=== PATIENT | female | born 1965 ===

== ENCOUNTER 2023-05-26 08:56 | Outpatient (AMB) | payer OTHER, SELFPAY ==
--- NOTE | 2023-05-26 08:54 | A.OFFVIS_ITS ---
Intake Vital Signs 05/26/23 08:56 Height 5 ft 3 in Weight 231 lb 0.711 oz BMI 40.9 BP 145/88 H Blood Pressure Location Lt brachial Position Sitting Pulse 86 Pulse Source Pulse Oximeter Intake Visit Reasons: Abdominal pain Intake Note: Pt presents to the office today for abdominal pain. Pt states this has been ongoing for years and saw a GI specialist about 10 years ago and was diagnosed with IBS. Allergies acetaminophen [From Percocet] Allergy (Severe, Verified 05/26/23 08:56) Unknown aspirin Allergy (Severe, Verified 05/26/23 08:56) Unknown ibuprofen Allergy (Severe, Verified 05/26/23 08:56) Unknown lactose Allergy (Severe, Verified 05/26/23 08:56) Rash latex Allergy (Severe, Verified 05/26/23 08:56) Unknown oxycodone [From Percocet] Allergy (Severe, Verified 05/26/23 08:56) Unknown tramadol Allergy (Severe, Verified 05/26/23 08:56) Unknown HPI Abdominal pain HPI Details 57-year-old female with past medical his tory of fibromyalgia, obesity, fatty liver, chronic GERD, IBS is here today for initial consultation. Patient was seen in the past by GI specialty in [facility]. Last upper endoscopy and colonoscopy was done in 2020. The procedure was done in October of 2020. Patient was found to have a H pylori associated gastritis with H pylori bacteria present, patient reports that she was not treated, GI specialist moved away. Colonoscopy showed hyperplastic polyps. Patient reports that she was diagnosed with H pylori bacteria in the past before her last upper endoscopy and was treated. Patient reports postprandial abdominal pain. Unable to eat certain food. Patient is doing elimination diet herself. Has to avoid lactose, unable to eat corn or any corn products. Patient's primary care provider send her for CT scan and MRI. MRI showed hepatic steatosis without any suspicion for liver lesion. No intra or extrahepatic biliary duct dilation. Normal gallbladder, normal pancreas. Patient had MRI in December of 2022, possible gastric wall thickening despite under distension, no small bowel obstruction. In March patient had CT scan of abdomen and pelvis for right upper quadrant discomfort. Questionable wall thickening and intraluminal narrowing of the hepatic flexure. [facility] Medical History (Updated 05/26/23 @ 12:03 by Jojo Obando, [facility]-) Non-alcoholic fatty liver disease Morbid (severe) obesity due to excess calories Irritable bowel syndrome Chronic GERD Fibromyalgia Surgical History S/P section Family History Father Hypertension Mother Cancer of thyroid Social History (Updated 05/26/23 @ 08:57 by Karen Singleton MA) Alcohol intake: never Patient Tobacco Use Status: Never used Tobacco Current occupational status: employed Current occupation: Teacher Review of Systems Const Denies weight gain and Denies weight loss ENT Reports no additional complaints, Denies dysphagia and Denies odynophagia Card Reports no additional complaints Resp Reports no additional complaints GI Reports abdominal pain, Denies belching, Denies melena, Reports bloating, Denies change in bowel habits, Denies dysphagia, Denies excessive flatus, Denies dyspepsia, Denies heartburn, Denies diarrhea, Denies loose stools, Denies nausea, Denies odynophagia and Denies vomiting Reports no additional complaints Musc Reports no additional complaints Neuro Reports no additional complaints Psych Reports no additional complaints Endo Reports no additional complaints Physical Exam Vital Signs: Last Vital Signs Pulse 86 05/26/23 08:56 BP 145/88 H 05/26/23 08:56 BMI result Body Mass Index 40.9 Const General: healthy appearing, no acute distress and well developed Nutritional Appearance: obese Orientation/consciousness: patient oriented x3 HEENT Head: Yes normal to inspection, Yes normocephalic and Yes atraumatic Face and sinus: Yes normal facial exam Mouth: Normal oral and palatal mucosa present Throat: Yes posterior oropharynx normal, Yes tonsils normal and Yes uvula midline Eyes General: appearance normal, both eyes and all related structures Neck Neck: Yes normal visual inspection, Yes full ROM and Yes trachea midline Thyroid: Thyroid normal Resp Effort & Inspection: normal respiratory effort, able to speak in complete sentences, no tracheal deviation and symmetric chest movement Auscultation: clear to auscultation bilaterally Cardio Rate: regular rate GI Inspection: Yes normal to inspection, No distended and Yes obesity Palpation (GI): Soft to palpation, not firm, nontender and No hepatosplenomegaly present Auscultation: normal bowel sounds General: Yes no CVA tenderness Back/Spine/Pelvis Back: no CVA tenderness Skin General skin exam: elasticity normal, turgor normal and dry skin Neuro General: patient oriented x3 Psych Appearance: grossly normal Mental Status: mental status grossly normal Affect: normal affect Assessment & Plan Assessment & Plan (1) IBS (irritable bowel syndrome): Code(s): K58.9 - Irritable bowel syndrome without diarrhea Qualifiers: Irritable bowel syndrome type: with both diarrhea and constipation Qualified Code(s): K58.2 - Mixed irritable bowel syndrome (2) Postprandial abdominal bloating: Code(s): R14.0 - Abdominal distension (gaseous) (3) Postprandial abdominal pain in right upper quadrant: Code(s): R10.11 - Right upper quadrant pain Plan Untreated H pylori most likely. Patient reports to have right upper and epigastric pain postprandially. Will do H pylori testing in treat empirically if positive. May send patient for upper endoscopy to evaluate and culture for appropriate treatment. Will change her therapy to Nexium daily. Discussed with patient avoiding dietary triggers and late night snacking. Will check transglutaminase to rule out celiac. Postprandial right upper quadrant discomfort and tenderness. Will send her for HIDA scan 1st. Will rule out biliary dyskinesia. Hepatic flexure thickening seen patient might need to go for colonoscopy. Patient did had a colonoscopy in October of 2020 no polyps or mass seen. Will check liver profile and lipase. Will rule out pancreatic insufficiency. Patient does report frequent postprandial abdominal bloating and loose stools. Will check vitamin B12, folate, vitamin-D levels. Will start having patient take Citrucel to help her bulk stools. Patient will take Senokot in the evening to help her evacuate her stools better. Low FODMAP diet discussed with patient. List of food record commended this with his list of food to avoid given to patient. Patient will return in the office in 2 months, sooner on as needed basis. Patient is agreeable to plan of care and verbalizes understanding of instructions. She was given the opportunity to ask questions and all questions answered. Thank you for allowing me to participate in her care Orders: Orders H pylori Ag Stool Today K21.9 - Gastro-esophageal reflux disease without esophagitis Transglutaminase Ab IgG Today R10.9 - Unspecified abdominal pain TSH reflex Free T4 Today K59.00 - Constipation, unspecified Vitamin D 25-OH (D2 and D3) Today E55.9 - Vitamin D deficiency, unspecified Liver Panel Today R10.9 - Unspecified abdominal pain NM hepatobiliary w pharm Today R10.11 - Right upper quadrant pain Pancreatic Elastase-1 Today R10.9 - Unspecified abdominal pain Transglutaminase IgA Today R10.9 - Unspecified abdominal pain Lipase Today R10.9 - Unspecified abdominal pain Vitamin B12 and Folate Today R19.7 - Diarrhea, unspecified Medications: New methylcellulose (laxative) (Citrucel) 500 mg PO DAILY 30 tabs 2RF K59.00 - Constipation, unspecified sennosides (Natural Senna Laxative) 17.2 mg (2 x 8.6 mg) PO BEDTIME 60 tabs 3RF constipation K59.00 - Constipation, unspecified esomeprazole magnesium (Nexium) 40 mg PO DAILY 30 caps 5RF K21.9 - Gastro- esophageal reflux disease without esophagitis Coding Level of Care Code New Pt Level 4 (47771) Diagnoses Irritable bowel syndrome with both constipation and diarrhea K58.2 Irritable bowel syndrome type: with both diarrhea and constipation Postprandial abdominal bloating R14.0 Postprandial abdominal pain in right upper quadrant R10.11 Time Spent (min) 45 Comment 30 minutes spent with patient and additional 15 minutes spent reviewing her records
[2023-05-26 08:56] VITALS: BP 145/88; PULSE 86; BMI 40.9
== END 2023-05-26 09:30 | disposition home or self-care (01) ==
LOC: HO.HGI 08:56
PROVIDERS: PCP Hospitalist; Visit Provider Nurse Practitioner Family
DX: K58.2 Mixed irritable bowel syndrome (principal); R14.0 Abdominal distension (gaseous); R10.11 Right upper quadrant pain
CPT/HCPCS: 99204

== ENCOUNTER 2023-05-26 08:56 | Outpatient (REF) | payer OTHER, SELFPAY ==
[2023-05-26 11:11] LABS: Alanine Aminotransferase 28 U/L (0-31); Albumin Level 4.3 g/dL (3.5-5.0); Alkaline Phosphatase 128 U/L (39-117); Aspartate Amino Transferase 26 U/L (5-31); Bilirubin Direct 0.2 mg/dL (0.0-0.5); Bilirubin Total 0.5 mg/dL (0.0-1.0); Lipase 22 U/L (8-78); Total Protein 7.7 g/dL (6.5-8.0)
[2023-05-26 11:28] LABS: TSH reflex Free T4 1.42 uIU/mL (0.32-4.0)
[2023-05-26 11:34] LABS: Folate 13.1 ng/mL (> or = 4.0); Vitamin B12 878 pg/mL (200-900)
[2023-05-28 13:57] LABS: Transglutaminase Ab IgG <1.0 U/mL; Transglutaminase IgA <1.0 U/mL
[2023-05-31 15:08] LABS: Vitamin D 25-OH, D2 11 ng/mL; Vitamin D 25-OH, D3 11 ng/mL; Vitamin D 25-OH, Total 22 ng/mL (30-100)
== END 2023-05-26 08:57 | disposition home or self-care (01) ==
LOC: HO.LAB 08:56
PROVIDERS: PCP Hospitalist; Visit Provider Nurse Practitioner Family
DX: R10.11 Right upper quadrant pain (principal); K58.2 Mixed irritable bowel syndrome; R14.0 Abdominal distension (gaseous); R19.7 Diarrhea, unspecified; K59.00 Constipation, unspecified; E55.9 Vitamin D deficiency, unspecified
CPT/HCPCS: 36415; 80076; 82306; 82607; 82746; 83690; 84443; 86364

== ENCOUNTER 2023-06-23 18:32 | Outpatient (REF) | payer OTHER, SELFPAY ==
[2023-06-30 18:53] LABS: Pancreatic Elastase-1 >500 mcg/g
== END 2023-06-23 18:33 | disposition home or self-care (01) ==
LOC: HO.LNP 18:32
PROVIDERS: Visit Provider Nurse Practitioner Family
DX: R10.9 Unspecified abdominal pain (principal); K21.9 Gastro-esophageal reflux disease without esophagitis
CPT/HCPCS: 82656; 87338

== ENCOUNTER → 2023-06-25 08:17 | Outpatient (REF) | payer OTHER, SELFPAY ==
--- NOTE | ~2023-06-25 | NM_ITS ---
EXAMINATION: BILIARY TRACT IMAGING STUDY WITH CCK CLINICAL INFORMATION: Right upper quadrant pain.. COMPARISON: No previous imaging studies are available for comparison.. TECHNIQUE: Serial gamma scintillation camera images were obtained over the abdomen for a total observation period of 90 minutes following the intravenous administration of 5 mCi Tc-99m Mebrofenin. FINDINGS: There is good concentration of activity in the liver by 5 minutes post injection. Biliary activity is visualized by 10 minutes. The gallbladder is well visualized by 25 minutes. Small bowel is well visualized by 15 minutes. At 60 minutes post radiopharmaceutical injection, a 30-minute infusion of 2.0 micrograms Sincalide was then begun and an additional 30 minutes of images were obtained. There is no significant gallbladder emptying at any time during the sincalide infusion. At the end of the study a full gallbladder is present but there is almost complete clearance of activity from the liver and visualization of diffuse small bowel activity. The calculated gallbladder ejection fraction is 4% (normal gallbladder ejection fraction is greater than 35%). NM/NM hepatobiliary w pharm IMPRESSION: 1. Visualization of the gallbladder is evidence of a patent cystic duct and strong evidence against the diagnosis of acute cholecystitis. The common bile duct is patent. Liver function appears normal. 2. Poor gallbladder emptying and a low gallbladder ejection fraction are evidence of impaired gallbladder contractility and most likely due to chronic cholecystitis.
== END ==
LOC: HO.NUCMED 08:17
PROVIDERS: PCP Hospitalist; Visit Provider Nurse Practitioner Family
DX: R10.11 Right upper quadrant pain (principal)
CPT/HCPCS: 78227; A9537; J2805

== ENCOUNTER 2023-07-13 13:35 | Outpatient (AMB) | payer OTHER, SELFPAY ==
--- NOTE | 2023-07-13 13:36 | MHC.OFFVIS ---
Intake Vital Signs 07/13/23 13:43 Height 5 ft 3 in Weight 228 lb BMI 40.4 BP 121/75 Blood Pressure Location Rt brachial Position Sitting Pulse 99 Intake Visit Reasons: Calculated gallbladder Intake Note: Patient referred by Cristobal Obando PA-C for calculated gallbladder. HIDA scan on 06-25-23. Patient c/o: discomfort, pain radiates from mid back to lower back. Denies nausea. 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 Accompanied by: Self / Same As Patient Allergies acetaminophen [From Percocet] Allergy (Severe, Verified 07/13/23 13:41) Unknown aspirin Allergy (Severe, Verified 07/13/23 13:41) Unknown ibuprofen Allergy (Severe, Verified 07/13/23 13:41) Unknown lactose Allergy (Severe, Verified 07/13/23 13:41) Rash latex Allergy (Severe, Verified 07/13/23 13:41) Unknown oxycodone [From Percocet] Allergy (Severe, Verified 07/13/23 13:41) Unknown tramadol Allergy (Severe, Verified 07/13/23 13:41) Unknown HPI HPI Comments History of Present Illness Details Patient presents because of a longstanding history of biliary symptoms with workup demonstrating biliary dyskinesia. Patient has had a variety of studies scopes and scans. Her symptoms consist of postprandial right upper quadrant pain radiating around to her back. As noted above this has been going for many years time. Patient has never been yellow or jaundiced. She denies any other GI issues or complaints. [facility] Medical History (Updated 06/25/23 @ 17:22 by Jojo Obando, [facility]-) Non-alcoholic fatty liver disease Morbid (severe) obesity due to excess calories Irritable bowel syndrome Chronic GERD Fibromyalgia Surgical History (Updated 07/13/23 @ 14:11 by Del Finney MD) Biliary dyskinesia S/P section Family History Father Hypertension Mother Cancer of thyroid Social History (Updated 05/26/23 @ 08:57 by Karen Singleton MA) Alcohol intake: never Patient Tobacco Use Status: Never used Tobacco Current occupational status: employed Current occupation: Teacher Physical Exam Vital Signs: Last Vital Signs Pulse 99 07/13/23 13:43 BP 121/75 07/13/23 13:43 BMI result Body Mass Index 40.4 Chest Other: Chest sounds bilaterally, HS 1 and 2. GI Other: Abdomen very corpulent, soft, benign. No scars. No obvious hernias. Assessment & Plan Assessment & Plan (1) Biliary dyskinesia: Code(s): K82.8 - Other specified diseases of gallbladder Plan Risks, benefits, alternatives laparoscopic possible open cholecystectomy reviewed the patient and included but not limited to bleeding, infection, recurrence of symptoms,, numbness, pain, scarring, bowel or bile duct injury or leak and the patient wishes to proceed. All questions answered. Arrangements were made for this. Coding Level of Care Code New Pt Level 5 (07447) Diagnoses Biliary dyskinesia K82.8
[2023-07-13 13:43] VITALS: BP 121/75; PULSE 99; BMI 40.4
== END 2023-07-13 14:03 | disposition home or self-care (01) ==
PROVIDERS: PCP Hospitalist; Referring Provider Nurse Practitioner Family; Visit Provider Surgery
DX: K82.8 Other specified diseases of gallbladder (principal)
CPT/HCPCS: 99204

== ENCOUNTER → 2023-07-13 13:35 | Outpatient (BNVA) | payer OTHER, SELFPAY | PROVIDERS: PCP Hospitalist; Referring Provider Nurse Practitioner Family; Visit Provider Surgery ==

== ENCOUNTER → 2023-07-27 09:33 | Outpatient (BNVA) | payer OTHER, SELFPAY | PROVIDERS: PCP Hospitalist; Visit Provider Nurse Practitioner Family ==

== ENCOUNTER 2023-07-27 09:38 | Outpatient (AMB) | payer OTHER, SELFPAY ==
[2023-07-27 09:34] VITALS: BP 127/70; PULSE 80; BMI 39.9
--- NOTE | 2023-07-27 09:34 | MHC.OFFVIS ---
Intake Vital Signs 07/27/23 09:34 Height 5 ft 3 in Weight 225 lb BMI 39.9 BP 127/70 Blood Pressure Location Rt brachial Position Sitting Pulse 80 Pulse Source Monitor Intake Visit Reasons: 2 MONTH FOLLOW UP Intake Note: Patient states shes been feeling the same as the last office visit. Patient is still having nausea, stomach aches, swelling right side of stomach/back area with diarrhea on and off. Manager Secondary Required: No Accompanied by: Self / Same As Patient Allergies acetaminophen [From Percocet] Allergy (Severe, Verified 07/27/23 09:37) Unknown aspirin Allergy (Severe, Verified 07/27/23 09:37) Unknown ibuprofen Allergy (Severe, Verified 07/27/23 09:37) Unknown lactose Allergy (Severe, Verified 07/27/23 09:37) Rash latex Allergy (Severe, Verified 07/27/23 09:37) Unknown oxycodone [From Percocet] Allergy (Severe, Verified 07/27/23 09:37) Unknown tramadol Allergy (Severe, Verified 07/27/23 09:37) Unknown HPI 2 MONTH FOLLOW UP HPI Details LAST VISIT IBS (irritable bowel syndrome) Postprandial abdominal bloating Postprandial abdominal pain in right upper quadrant Plan Untreated H pylori most likely. Patient reports to have right upper and epigastric pain postprandially. Will do H pylori testing in treat empirically if positive. May send patient for upper endoscopy to evaluate and culture for appropriate treatment. Will change her therapy to Nexium daily. Discussed with patient avoiding dietary triggers and late night snacking. Will check transglutaminase to rule out celiac. Postprandial right upper quadrant discomfort and tenderness. Will send her for HIDA scan 1st. Will rule out biliary dyskinesia. Hepatic flexure thickening seen patient might need to go for colonoscopy. Patient did had a colonoscopy in October of 2020 no polyps or mass seen. Will check liver profile and lipase. Will rule out pancreatic insufficiency. Patient does report frequent postprandial abdominal bloating and loose stools. Will check vitamin B12, folate, vitamin-D levels. Will start having patient take Citrucel to help her bulk stools. Patient will take Senokot in the evening to help her evacuate her stools better. Low FODMAP diet discussed with patient. List of food record commended this with his list of food to avoid given to patient. Patient will return in the office in 2 months, sooner on as needed basis. Patient is agreeable to plan of care and verbalizes understanding of instructions. She was given the opportunity to ask questions and all questions answered. ? Thank you for allowing me to participate in her care Orders Orders H pylori Ag Stool Today K21.9 Transglutaminase Ab IgG Today R10.9 TSH reflex Free T4 Today K59.00 Vitamin D 25-OH (D2 and D3) Today E55.9 Liver Panel Today R10.9 NM hepatobiliary w pharm Today R10.11 Pancreatic Elastase-1 Today R10.9 Transglutaminase IgA Today R10.9 Lipase Today R10.9 Vitamin B12 and Folate Today R19.7 Medications New methylcellulose (laxative) (Citrucel) 500 mg PO DAILY 30 tabs 2RF K59.00 sennosides (Natural Senna Laxative) 17.2 mg (2 x 8.6 mg) PO BEDTIME 60 tabs 3RF constipation K59.00 esomeprazole magnesium (Nexium) 40 mg PO DAILY 30 caps 5RF K21.9 TODAY'S VISIT: Patient is here today for follow-up and to discuss lab and HIDA scan results. No H pylori found. However patient does have dyskinetic gallbladder. Patient was referred to General surgery and has scheduled cholecystectomy next week. Patient continues to have occasional loose stool and then constipation, depending on what she eats. Reports that her dyspepsia is much better now that she is on pantoprazole. Patient tried Nexium, however felt like she had a strange reaction with body aches when she started taking it. Patient denies any dysphagia or odynophagia. Patient denies any melena, hematochezia, unintentional weight loss or ribbon like stools. [facility] Medical History (Updated 06/25/23 @ 17:22 by Jojo Obando, [facility]-) Non-alcoholic fatty liver disease Morbid (severe) obesity due to excess calories Irritable bowel syndrome Chronic GERD Fibromyalgia Surgical History (Updated 02/06/24 @ 14:11 by Del Finney MD) Biliary dyskinesia S/P section Family History Father Hypertension Mother Cancer of thyroid Social History (Updated 05/26/23 @ 08:57 by Karen Singleton MA) Alcohol intake: never Patient Tobacco Use Status: Never used Tobacco Current occupational status: employed Current occupation: Teacher Review of Systems Const Denies weight gain and Denies weight loss ENT Reports no additional complaints, Denies dysphagia and Denies odynophagia Card Reports no additional complaints Resp Reports no additional complaints GI Reports abdominal pain (RUQ), Denies belching, Denies melena, Reports bloating, Denies change in bowel habits, Reports constipation, Denies dysphagia, Denies excessive flatus, Denies dyspepsia, Denies heartburn, Denies diarrhea, Reports loose stools, Denies nausea, Denies odynophagia and Denies vomiting Reports no additional complaints Musc Reports no additional complaints Neuro Reports no additional complaints Psych Reports no additional complaints Endo Reports no additional complaints Physical Exam Const General: healthy appearing, no acute distress and well developed Nutritional Appearance: obese Orientation/consciousness: patient oriented x3 Resp Effort & Inspection: normal respiratory effort, able to speak in complete sentences, no tracheal deviation and symmetric chest movement Auscultation: clear to auscultation bilaterally Cardio Rate: regular rate GI Inspection: Yes normal to inspection, No distended and Yes obesity Palpation (GI): Soft to palpation, not firm, nontender and No hepatosplenomegaly present Auscultation: normal bowel sounds General: Yes no CVA tenderness Back/Spine/Pelvis Back: no CVA tenderness Skin General skin exam: elasticity normal, turgor normal and dry skin Neuro General: patient oriented x3 Psych Appearance: grossly normal Mental Status: mental status grossly normal Results Reviewed Results Reviewed: Laboratory Tests 05/26/23 05/26/23 06/23/23 09:58 09:58 11:20 Vitamin B12 878 25-OH Vitamin D Total 22 L 25-Hydroxy Vitamin D2 11 25-Hydroxy Vitamin D3 11 Folate 13.1 TSH 1.42 Stool Pancreat Elastase >500 Tiss Transglutamin IgG <1.0 Tiss Transglutamin IgA <1.0 HIDA SCAN FINDINGS: There is good concentration of activity in the liver by 5 minutes post injection. Biliary activity is visualized by 10 minutes. The gallbladder is well visualized by 25 minutes. Small bowel is well visualized by 15 minutes. At 60 minutes post radiopharmaceutical injection, a 30-minute infusion of 2.0 micrograms Sincalide was then begun and an additional 30 minutes of images were obtained. There is no significant gallbladder emptying at any time during the sincalide infusion. At the end of the study a full gallbladder is present but there is almost complete clearance of activity from the liver and visualization of diffuse small bowel activity. The calculated gallbladder ejection fraction is 4% (normal gallbladder ejection fraction is greater than 35%). NM/NM hepatobiliary w pharm IMPRESSION: 1. Visualization of the gallbladder is evidence of a patent cystic duct and strong evidence against the diagnosis of acute cholecystitis. The common bile duct is patent. Liver function appears normal. 2. Poor gallbladder emptying and a low gallbladder ejection fraction are evidence of impaired gallbladder contractility and most likely due to chronic cholecystitis. Assessment & Plan Assessment & Plan (1) Biliary dyskinesia: Code(s): K82.8 - Other specified diseases of gallbladder (2) IBS (irritable bowel syndrome): Code(s): K58.9 - Irritable bowel syndrome without diarrhea Qualifiers: Irritable bowel syndrome type: with both diarrhea and constipation Qualified Code(s): K58.2 - Mixed irritable bowel syndrome (3) Postprandial abdominal bloating: Code(s): R14.0 - Abdominal distension (gaseous) (4) Postprandial abdominal pain in right upper quadrant: Code(s): R10.11 - Right upper quadrant pain Plan Continue pantoprazole daily. May use Senokot on as needed basis. Discussed with patient low FODMAP diet. List of food recommended as well as list of food to avoid given to patient. Discussed with patient that she might need to change her diet her surgery. I will see her in 3 months, sooner on as needed basis. Patient is agreeable to this plan and verbalizes understanding of instructions. She was given the opportunity to ask questions and all questions answered. Thank you for allowing me to participate in her care Coding Level of Care Code Est Pt Level 4 (72569) Diagnoses Biliary dyskinesia K82.8 Irritable bowel syndrome with both constipation and diarrhea K58.2 Irritable bowel syndrome type: with both diarrhea and constipation Postprandial abdominal bloating R14.0 Postprandial abdominal pain in right upper quadrant R10.11 Time Spent (min) 35 Comment 20 minutes spent with patient and additional 15 minutes spent reviewing her records
== END 2023-07-27 10:02 | disposition home or self-care (01) ==
PROVIDERS: PCP Hospitalist; Visit Provider Nurse Practitioner Family
DX: K82.8 Other specified diseases of gallbladder (principal); K58.2 Mixed irritable bowel syndrome; R14.0 Abdominal distension (gaseous); R10.11 Right upper quadrant pain
CPT/HCPCS: 99214

== ENCOUNTER 2023-08-05 08:24 | Day surgery (SDC) | payer OTHER, SELFPAY ==
[2023-08-03 09:47] VITALS: BMI 40.4
--- NOTE | 2023-08-04 10:08 | HO.ANESPROP2 ---
HPI - Anesthesia Eval Consult details Narrative: 58yo F for Cholecystectomy Laparoscopic, possible open PMFSH Active Problems Active Problems: All Active Problems (Updated 08/03/23 @ 09:45 by Angelina Mills RN) Biliary dyskinesia (Acute) Past Medical History Medical History (Updated 08/03/23 @ 09:43 by Angelina Mills RN) Biliary dyskinesia Non-alcoholic fatty liver disease Morbid (severe) obesity due to excess calories Irritable bowel syndrome Chronic GERD Fibromyalgia Family History Family History Father Hypertension Mother Cancer of thyroid Surgical History Surgical History (Updated 08/03/23 @ 09:45 by Angelina Mills RN) H/O colonoscopy History of esophagogastroduodenoscopy (EGD) S/P section Social History Social History (Updated 05/26/23 @ 08:57 by Karen Singleton MA) Alcohol intake: never Patient Tobacco Use Status: Never used Tobacco Current occupational status: employed Current occupation: Teacher Meds Allergies Allergy/AdvReac Type Severity Reaction Status Date / Time lactose Allergy Intermediate Rash Verified 08/03/23 09:40 aspirin Allergy Unknown Unknown Verified 08/03/23 09:40 ibuprofen Allergy Unknown Unknown Verified 08/03/23 09:40 latex Allergy Unknown Unknown Verified 08/03/23 09:40 oxycodone [From Percocet] Allergy Unknown Unknown Verified 08/03/23 09:40 tramadol Allergy Unknown Unknown Verified 08/03/23 09:40 Home Medications Medication Instructions Recorded Confirmed Last Taken Type ascorbic acid (vitamin C) 1,000 mg 1,000 mg PO DAILY 05/20/23 08/03/23 Unknown History tablet fluticasone propionate 50 1 spray intranasal DAILY 05/20/23 08/03/23 Unknown History mcg/actuation nasal spray,suspension furosemide 20 mg tablet 20 mg PO DAILY 05/20/23 08/03/23 Unknown History losartan 25 mg tablet 25 mg PO DAILY 05/20/23 08/03/23 Unknown History celecoxib 100 mg capsule (Celebrex) 100 mg PO BID PRN Pain 07/27/23 08/03/23 Unknown History cyclobenzaprine 10 mg tablet 10 mg PO TID PRN 07/27/23 Unknown History gabapentin 100 mg capsule 100 mg PO BID PRN Pain 07/27/23 08/03/23 Unknown History methylcellulose (laxative) 500 mg 500 mg PO DAILY PRN Constipation 07/27/23 08/03/23 Unknown History tablet (Citrucel) Exam Height,Weight and Vital Signs: Height 5 ft 3 in Weight 103.419 kg Assessment and Plan Assessment Anesthesia Assessment: Chart Reviewed
--- NOTE | 2023-08-04 13:22 | MHC.SHP ---
Pre-Procedural Eval Section A - 24 Hr Update-Section A only Date of Service: 08/04/23 The patient is an INPATIENT: No Changes since office visit: No Cold of Flu in the past 2 weeks, No New Medical Problems, No Changes in Medication and No Patient answered all questions The patient has been examined within 24 hours of the surgical procedure. The History & Physical has been completed within 30 days and I have reviewed it.: Yes Section B - Complete if H&P > 30 days Chief Complaint: Other specified diseases of gallbladder Allergies: Allergies Allergy/AdvReac Type Severity Reaction Status Date / Time lactose Allergy Intermediate Rash Verified 08/03/23 09:40 aspirin Allergy Unknown Unknown Verified 08/03/23 09:40 ibuprofen Allergy Unknown Unknown Verified 08/03/23 09:40 latex Allergy Unknown Unknown Verified 08/03/23 09:40 oxycodone [From Percocet] Allergy Unknown Unknown Verified 08/03/23 09:40 tramadol Allergy Unknown Unknown Verified 08/03/23 09:40 Plan I have reviewed the history and physical and performed a pertinent physical examination on my patient. No changes have occurred unless specified. Time Spent With Patient Time: Total time managing care of this patient today ____ minutes.
[2023-08-05] VITALS (14 sets, daily range): BP systolic 112–138; BP diastolic 65–79; PULSE 46–72; RESP 14–28; TEMP 36.4–36.8; O2SAT 88–98; BMI 39.5
[2023-08-05 14:12] LABS: Hematocrit 40.3 % (37.0-47.0); Mean Corpuscular HGB Conc 34.7 g/dl (31.0-35.0); Mean Corpuscular Hemoglobin 28.9 pg (27.0-33.0); Mean Corpuscular Volume 83.1 fL (80.0-98.0); Platelet Count 195 X10*3/uL (160-400); Red Blood Count 4.85 X10*6/uL (4.20-5.50); Red Cell Distribution Width 12.7 % (11.0-16.0); White Blood Count 4.6 X10*3/uL (4.8-10.8)
[2023-08-05 14:26] LABS: Alanine Aminotransferase 30 U/L (0-31); Albumin Level 4.2 g/dL (3.5-5.0); Alkaline Phosphatase 137 U/L (39-117); Anion Gap 11 (12-20); Aspartate Amino Transferase 25 U/L (5-31); Bilirubin Total 0.6 mg/dL (0.0-1.0); Blood Urea Nitrogen 15 mg/dL (9-16); Calcium 9.3 mg/dL (8.4-10.2); Carbon Dioxide 26 mmol/L (22-29); Chloride 108 mmol/L (96-108); Creatinine Clr Calc Pharmacy 98.9; Estimated Glomerular Filt Rate > 60; Glucose Fasting 85 mg/dL (60-99); Potassium 3.9 mmol/L (3.3-5.1); Sodium 141 mmol/L (135-145); Total Protein 7.6 g/dL (6.5-8.0)
--- NOTE | 2023-08-05 15:00 | P.CONAN_ITS ---
[facility] Active Problems Active Problems: All Active Problems (Updated 08/05/23 @ 14:34 by Lucero Thrasher) Biliary dyskinesia (Acute) Past Medical History Medical History (Updated 08/03/23 @ 09:43 by Angelina Mills RN) Biliary dyskinesia Non-alcoholic fatty liver disease Morbid (severe) obesity due to excess calories Irritable bowel syndrome Chronic GERD Fibromyalgia Functional capacity: independent ambulation Family History Family History Father Hypertension Mother Cancer of thyroid Family history of problems with anesthesia: No Surgical History Surgical History H/O shoulder surgery H/O colonoscopy History of esophagogastroduodenoscopy (EGD) S/P section History of Problems with Anesthesia: No Social History Social History Alcohol intake: never Patient Tobacco Use Status: Never used Tobacco Current occupational status: employed Current occupation: Teacher Meds Allergies Allergy/AdvReac Type Severity Reaction Status Date / Time adhesive tape Allergy Severe SKIN BURN Verified 08/05/23 14:44 oxycodone [From Percocet] Allergy Severe Hallucinati Verified 08/05/23 14:35 ons tramadol Allergy Severe Hallucinati Verified 08/05/23 14:35 ons aspirin Allergy Intermediate STOMACH Verified 08/05/23 14:35 ULCER ibuprofen Allergy Intermediate STOMACH Verified 08/05/23 14:35 ULCER lactose Allergy Intermediate Rash Verified 08/03/23 09:40 latex Allergy Intermediate Rash Verified 08/05/23 14:35 Active Medications: Current Medications Lactated Ringer's (Lr) 1,000 mls @ 100 mls/hr IVCONT .Q10H [facility] Home Medications Medication Instructions Recorded Confirmed Last Taken Type ascorbic acid (vitamin C) 1,000 mg 1,000 mg PO DAILY 05/20/23 08/05/23 Unknown History tablet furosemide 20 mg tablet 20 mg PO DAILY 05/20/23 08/05/23 Unknown History losartan 25 mg tablet 25 mg PO DAILY 05/20/23 08/05/23 08/05/23 History celecoxib 100 mg capsule (Celebrex) 100 mg PO BID PRN Pain 07/27/23 08/03/23 Unknown History cyclobenzaprine 10 mg tablet 10 mg PO TID PRN Pain 07/27/23 08/05/23 Unknown History gabapentin 100 mg capsule 100 mg PO BID PRN Pain 07/27/23 08/05/23 Unknown History methylcellulose (laxative) 500 mg 500 mg PO DAILY PRN Constipation 07/27/23 08/05/23 Unknown History tablet (Citrucel) Exam Height,Weight and Vital Signs: Height 5 ft 4 in Weight 104.326 kg Last Vital Signs Temp 98.2 F 08/05/23 14:32 Pulse 58 08/05/23 14:32 Resp 16 08/05/23 14:32 BP 123/75 08/05/23 14:32 Pulse Ox 98 08/05/23 14:32 O2 Del Method Room Air 08/05/23 14:32 Pertinent Lab Results Pertinent Lab Results: Laboratory Tests 08/05/23 14:05 WBC 4.6 L RBC 4.85 Hgb 14.0 Hct 40.3 MCV 83.1 MCH 28.9 MCHC 34.7 RDW 12.7 Plt Count 195 MPV 10.0 Absolute Nucleated RBC 0.000 Nucleated RBC % (auto) 0.0 Sodium 141 Potassium 3.9 Chloride 108 Carbon Dioxide 26 Anion Gap 11 L BUN 15 Creatinine 0.73 Estim Creat Clear Calc 98.9 Estimated GFR > 60 Fasting Glucose 85 Calcium 9.3 Total Bilirubin 0.6 AST 25 ALT 30 Alkaline Phosphatase 137 H Total Protein 7.6 Albumin 4.2 Airway Mallampati Class: III TM Dist: >3cm Neck ROM: Full Heart: RRR Lungs: CTA Assessment and Plan Assessment Anesthesia Assessment: Anesthesia Plan Discussed Final Anesthetic Review Family History of Problems with Anesthesia: No History of Problems with Anesthesia: No ASA Class: III Final Preanesthetic Review: Meds/Allgs Chart Reviewed, Consent Obtained/Reviewed and Anes Risks/Benef Reviewed Patient Risk: Intermediate Procedure Risk: Intermediate Anesthetic Plan Anesthetic Plan: GA Disposition: Standard PACU
[2023-08-05] MEDS: Lactated Ringers 1,000 ML 100 ML IVCONT (15:47)
--- NOTE | 2023-08-05 16:19 | P.CONAN_ITS ---
[facility], [facility] Active Problems Active Problems: All Active Problems (Updated 08/05/23 @ 14:34 by Lucero Thrasher) Biliary dyskinesia (Acute) Past Medical History Medical History (Updated 08/03/23 @ 09:43 by Angelina Mills RN) Biliary dyskinesia Non-alcoholic fatty liver disease Morbid (severe) obesity due to excess calories Irritable bowel syndrome Chronic GERD Fibromyalgia Functional capacity: independent ambulation Family History Family History Father Hypertension Mother Cancer of thyroid Family history of problems with anesthesia: No Surgical History Surgical History H/O shoulder surgery H/O colonoscopy History of esophagogastroduodenoscopy (EGD) S/P section History of Problems with Anesthesia: No Social History Social History Alcohol intake: never Patient Tobacco Use Status: Never used Tobacco Current occupational status: employed Current occupation: Teacher Meds Allergies Allergy/AdvReac Type Severity Reaction Status Date / Time adhesive tape Allergy Severe SKIN BURN Verified 08/05/23 14:44 oxycodone [From Percocet] Allergy Severe Hallucinati Verified 08/05/23 14:35 ons tramadol Allergy Severe Hallucinati Verified 08/05/23 14:35 ons aspirin Allergy Intermediate STOMACH Verified 08/05/23 14:35 ULCER ibuprofen Allergy Intermediate STOMACH Verified 08/05/23 14:35 ULCER lactose Allergy Intermediate Rash Verified 08/03/23 09:40 latex Allergy Intermediate Rash Verified 08/05/23 14:35 Active Medications: Current Medications Fentanyl (Fentanyl Citrate/Pf 100 Mcg/2 Ml Vial) 25 mcg IVPUSH Q5M PRN; Protocol PRN Reason: Pain, Moderate(Pain Scale 4-6) Lactated Ringer's (Lr) 1,000 mls @ 100 mls/hr IVCONT .Q10H [facility] Last Admin: 08/05/23 15:47 Dose: 100 mls/hr Ondansetron HCl (Ondansetron Hcl 4 Mg/2 Ml Vial) 4 mg IVPUSH ONCE PRN PRN Reason: Nausea and Vomiting Home Medications Medication Instructions Recorded Confirmed Last Taken Type ascorbic acid (vitamin C) 1,000 mg 1,000 mg PO DAILY 05/20/23 08/05/23 Unknown History tablet furosemide 20 mg tablet 20 mg PO DAILY 05/20/23 08/05/23 Unknown History losartan 25 mg tablet 25 mg PO DAILY 05/20/23 08/05/23 08/05/23 History celecoxib 100 mg capsule (Celebrex) 100 mg PO BID PRN Pain 07/27/23 08/03/23 Unknown History cyclobenzaprine 10 mg tablet 10 mg PO TID PRN Pain 07/27/23 08/05/23 Unknown History gabapentin 100 mg capsule 100 mg PO BID PRN Pain 07/27/23 08/05/23 Unknown History methylcellulose (laxative) 500 mg 500 mg PO DAILY PRN Constipation 07/27/23 08/05/23 Unknown History tablet (Citrucel) Exam Height,Weight and Vital Signs: Height 5 ft 4 in Weight 104.326 kg Last Vital Signs Temp 98.2 F 08/05/23 14:32 Pulse 58 08/05/23 14:32 Resp 16 08/05/23 14:32 BP 123/75 08/05/23 14:32 Pulse Ox 98 08/05/23 14:32 O2 Del Method Room Air 08/05/23 14:32 Pertinent Lab Results Pertinent Lab Results: Laboratory Tests 08/05/23 14:05 WBC 4.6 L RBC 4.85 Hgb 14.0 Hct 40.3 MCV 83.1 MCH 28.9 MCHC 34.7 RDW 12.7 Plt Count 195 MPV 10.0 Absolute Nucleated RBC 0.000 Nucleated RBC % (auto) 0.0 Sodium 141 Potassium 3.9 Chloride 108 Carbon Dioxide 26 Anion Gap 11 L BUN 15 Creatinine 0.73 Estim Creat Clear Calc 98.9 Estimated GFR > 60 Fasting Glucose 85 Calcium 9.3 Total Bilirubin 0.6 AST 25 ALT 30 Alkaline Phosphatase 137 H Total Protein 7.6 Albumin 4.2 Airway Mallampati Class: III TM Dist: >3cm Neck ROM: Full Partial: Upper Heart: RRR Lungs: CTA Assessment and Plan Assessment Anesthesia Assessment: Anesthesia Plan Discussed Final Anesthetic Review Family History of Problems with Anesthesia: No History of Problems with Anesthesia: No NPO: Yes ASA Class: III Final Preanesthetic Review: Meds/Allgs Chart Reviewed, Consent Obtained/Reviewed and Anes Risks/Benef Reviewed Patient Risk: Intermediate Procedure Risk: Intermediate Anesthetic Plan Anesthetic Plan: GA Disposition: Standard PACU
--- NOTE | 2023-08-05 16:42 | P.OP_ITS ---
Operative Note Operative Note Date of Service: 08/05/23 Narrative: Preoperative diagnosis: Biliary dyskinesia Postoperative diagnosis; the same. Surgeon; [employer] Operator: [] Zachary Type of Anesthesia: [] General Indication for surgery: [] Corpulent abdomen with with gallbladder that had omental adhesions to it. Intrahepatic gallbladder Findings: [] Patient brought to the operating room, placed on operative table in supine position, after an adequate level of general anesthesia was induced, the patient's abdomen is prepped and draped in usual sterile fashion. Using a supraumbilical curvilinear incision, Ramirez technique was used to insufflate the abdominal cavity to 15 mm of CO2. Upper midline and right subcostal ports were placed under direct laparoscopic view, the patient placed in reverse Trendelenburg position, tilted to the left. Findings were as noted above. Gallbladder was grasped using laparoscopic graspers, and retracted superiorly and laterally. Omental adhesions swept off the gallbladder where the hilum was approached. Cystic artery and cystic duct were each identified, circumferentially skeletonized, each traced directly into the gallbladder, and critical view obtained. Each was clipped proximally x2 distally x1, and trans ected. Gallbladder which was moderately intrahepatic was then cauterized from the gallbladder fossa using Bovie. Specimen was placed in an Endo-Catch bag, and retrieved through the umbilical port. The abdominal cavity was copiously irrigated, secured hemostasis, and all ports were removed under direct laparoscopic view. Wounds were closed in the following manner; umbilical wound had its fascia reapproximated using interrupted 0 Vicryl sutures. Skin wounds were closed with subcuticular 4-0 Vicryl sutures followed by Steri-Strips and sterile dressings. Wounds were infiltrated 0.5% Marcaine at completion. Sponge, needle, and instrument counts reported correct. Patient tolerated the procedure well and emerged from anesthesia stable condition. EBL minimal
[2023-08-05] MEDS: Acetaminophen 1,000 MG/100 ML PIGGYBACK 400 MG IV (18:06)
[2023-08-05] MEDS: fentaNYL citrate/PF 100 MCG/2 ML VIAL 25 MCG IVPUSH ×2 (18:10→18:17)
== END 2023-08-05 19:41 | disposition home or self-care (01) ==
PROVIDERS: Nurse Practitioner; PCP Hospitalist; Visit Provider Surgery
PROC: 0FT44ZZ Resection of Gallbladder, Percutaneous Endoscopic Approach (ICD-10-PCS; CPT 47562; principal; 2023-08-05 13:40)
DX: K81.1 Chronic cholecystitis (principal); K82.8 Other specified diseases of gallbladder; Q44.1 Other congenital malformations of gallbladder; K76.0 Fatty (change of) liver, not elsewhere classified; K21.9 Gastro-esophageal reflux disease without esophagitis; K58.9 Irritable bowel syndrome, unspecified; M79.7 Fibromyalgia; E66.01 Morbid (severe) obesity due to excess calories; Z68.41 Body mass index [BMI] 40.0-44.9, adult; Z79.899 Other long term (current) drug therapy; Z88.5 Allergy status to narcotic agent; Z88.8 Allergy status to other drugs, medicaments and biological substances; Z91.040 Latex allergy status; Z98.890 Other specified postprocedural states
CPT/HCPCS: 47562; 36415; 80053; 85027; 88304; J0131; J0690; J1100; J1596; J2250; J2405; J2704; J2795; J3010

== ENCOUNTER → 2023-08-05 08:24 | Outpatient (BNV) | payer OTHER, SELFPAY | PROVIDERS: PCP Hospitalist; Visit Provider Surgery | DX: K82.8 Other specified diseases of gallbladder (principal) | CPT/HCPCS: 47562 ==

== ENCOUNTER 2023-08-18 13:46 | Outpatient (AMB) | payer OTHER, SELFPAY ==
[2023-08-18 13:53] VITALS: BP 127/62; PULSE 74
--- NOTE | 2023-08-18 13:53 | A.OFFVIS_ITS ---
Intake Vital Signs 08/18/23 13:53 Weight 223 lb BP 127/62 Blood Pressure Location Rt brachial Position Sitting Pulse 74 Intake Visit Reasons: S/p lap erik Intake Note: Patient here s/p lap erik on 08-05-23. Reports incisions healing well. Patient c/o: no longer taking rx pain meds. 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 Accompanied by: Self / Same As Patient Allergies adhesive tape Allergy (Severe, Verified 08/18/23 13:54) SKIN BURN oxycodone [From Percocet] Allergy (Severe, Verified 08/18/23 13:54) Hallucinations tramadol Allergy (Severe, Verified 08/18/23 13:54) Hallucinations aspirin Allergy (Intermediate, Verified 08/18/23 13:54) STOMACH ULCER ibuprofen Allergy (Intermediate, Verified 08/18/23 13:54) STOMACH ULCER lactose Allergy (Intermediate, Verified 08/18/23 13:54) Rash latex Allergy (Intermediate, Verified 08/18/23 13:54) Rash HPI HPI Comments History of Present Illness Details Patient is follow up status post laparoscopic cholecystectomy. She has minimal incisional discomfort. She has tolerating a diet. He is having regular bowel habits. She is increasing her activity level. [facility] Medical History Biliary dyskinesia Non-alcoholic fatty liver disease Morbid (severe) obesity due to excess calories Irritable bowel syndrome Chronic GERD Fibromyalgia Surgical History H/O shoulder surgery H/O colonoscopy History of esophagogastroduodenoscopy (EGD) S/P section Family History Father Hypertension Mother Cancer of thyroid Social History Alcohol intake: never Patient Tobacco Use Status: Never used Tobacco Current occupational status: employed Current occupation: Teacher Physical Exam Vital Signs: Last Vital Signs Pulse 74 08/18/23 13:53 BP 127/62 08/18/23 13:53 Eyes Other: Anicteric GI Other: Abdomen is soft, benign. All wounds clean dry and intact healing well Assessment & Plan Assessment & Plan (1) Status post laparoscopic cholecystectomy: Code(s): Z90.49 - Acquired absence of other specified parts of digestive tract Plan Patient has been given local instructions, and will follow-up p.r.n.. She has a no were for work which will be provided. All questions answered. Coding Level of Care Code Global (59928) Diagnoses Status post laparoscopic cholecystectomy Z90.49
== END 2023-08-18 14:18 | disposition home or self-care (01) ==
PROVIDERS: PCP Hospitalist; Visit Provider Surgery
DX: Z90.49 Acquired absence of other specified parts of digestive tract (principal)
CPT/HCPCS: 99024

== ENCOUNTER → 2023-08-18 13:46 | Outpatient (BNVA) | payer OTHER, SELFPAY | PROVIDERS: PCP Hospitalist; Visit Provider Surgery ==

== ENCOUNTER 2023-11-03 12:02 | Outpatient (AMB) | payer OTHER, SELFPAY ==
--- NOTE | 2023-11-03 12:18 | A.OFFVIS_ITS ---
Vital Signs 11/03/23 12:20 Height 5 ft 4 in Weight 221 lb BMI 37.9 BP 119/63 Blood Pressure Location Lt brachial Position Sitting Pulse 84 Intake Visit Reasons: 3 month follow up IBS Intake Note: Patient follow up for IBS Patient cc: abdominal bloating and RUQ pain radiating to her right lower back, between diarrhea and constipation. She wasnted you to check her insition for her Gallbladder surgery.Denies any other GI issues. 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 Accompanied by: Self / Same As Patient Allergies adhesive tape Allergy (Severe, Verified 11/03/23 12:18) SKIN BURN oxycodone [From Percocet] Allergy (Severe, Verified 11/03/23 12:18) Hallucinations tramadol Allergy (Severe, Verified 11/03/23 12:18) Hallucinations aspirin Allergy (Intermediate, Verified 11/03/23 12:18) STOMACH ULCER ibuprofen Allergy (Intermediate, Verified 11/03/23 12:18) STOMACH ULCER lactose Allergy (Intermediate, Verified 11/03/23 12:18) Rash latex Allergy (Intermediate, Verified 11/03/23 12:18) Rash HPI HPI 3 month follow up IBS: Details: LAST VISIT Biliary dyskinesia IBS (irritable bowel syndrome) Postprandial abdominal bloating Postprandial abdominal pain in right upper quadrant Plan Continue pantoprazole daily. May use Senokot on as needed basis. Discussed with patient low FODMAP diet. List of food recommended as well as list of food to avoid given to patient. Discussed with patient that she might need to change her diet her surgery. I will see her in 3 months, sooner on as needed basis. Patient is agreeable to this plan and verbalizes understanding of instructions. She was given the opportunity to ask questions and all questions answered. TODAY'S VISIT: Patient is here today for follow-up. Patient reports that she continues to have right upper quadrant pain and cramping radiating to her right flank. Patient feels like it is related to what she eats. Patient was diagnosed with biliary dyskinesia and had surgery on July. Patient reports that day after surgery she end up with severe colic and was admitted to the hospital. Patient states that she was at [facility]. Patient states that she was unable to move her bowels in the only thing that helped her was suppository. Patient continues to have a postprandial epigastric pain in the area. CT scan negative for any obstruction or any acute processes. Patient did follow-up with her general surgeon last month. No issues and generally patient states that she is feeling better. She is taking pantoprazole every morning. Reports that senna is not helping. Patient tried taking Citrucel and did not help with bulking her stools. Patient has occasional loose stools and then constipation [facility] Medical History Biliary dyskinesia Non-alcoholic fatty liver disease Morbid (severe) obesity due to excess calories Irritable bowel syndrome Chronic GERD Fibromyalgia Surgical History H/O shoulder surgery H/O colonoscopy History of esophagogastroduodenoscopy (EGD) S/P section Family History Father Hypertension Mother Cancer of thyroid Social History Alcohol intake: never Patient Tobacco Use Status: Never used Tobacco Current occupational status: employed Current occupation: Teacher Review of Systems Const Denies weight gain and Denies weight loss ENT Reports no additional complaints, Denies dysphagia and Denies odynophagia Card Reports no additional complaints Resp Reports no additional complaints GI Reports abdominal pain (RUQ), Denies belching, Denies melena, Reports bloating, Denies change in bowel habits, Reports constipation, Denies dysphagia, Denies excessive flatus, Denies dyspepsia, Denies heartburn, Denies diarrhea, Reports loose stools, Denies nausea, Denies odynophagia and Denies vomiting Reports no additional complaints Musc Reports no additional complaints Neuro Reports no additional complaints Psych Reports no additional complaints Endo Reports no additional complaints Physical Exam Vital Signs: Last Vital Signs Pulse 84 11/03/23 12:20 BP 119/63 11/03/23 12:20 BMI result Body Mass Index 37.9 Const General: healthy appearing and no acute distress Orientation/consciousness: patient oriented x3 Resp Effort & Inspection: normal respiratory effort, able to speak in complete sentences, no tracheal deviation and symmetric chest movement Auscultation: clear to auscultation bilaterally Cardio Rate: regular rate GI Inspection: Yes normal to inspection, No distended and Yes obesity Palpation (GI): Soft to palpation, not firm, nontender and No hepatosplenomegaly present Auscultation: normal bowel sounds General: Yes no CVA tenderness Back/Spine/Pelvis Back: no CVA tenderness Skin General skin exam: elasticity normal, turgor normal and dry skin Neuro General: patient oriented x3 Psych Appearance: grossly normal Mental Status: mental status grossly normal Assessment & Plan Assessment & Plan (1) Status post laparoscopic cholecystectomy: Code(s): Z90.49 - Acquired absence of other specified parts of digestive tract Category: Surgical (2) Biliary dyskinesia: Code(s): K82.8 - Other specified diseases of gallbladder Category: Surgical (3) IBS (irritable bowel syndrome): Code(s): K58.9 - Irritable bowel syndrome without diarrhea Qualifiers: Irritable bowel syndrome type: with both diarrhea and constipation Qualified Code(s): K58.2 - Mixed irritable bowel syndrome (4) Postprandial abdominal bloating: Code(s): R14.0 - Abdominal distension (gaseous) (5) Postprandial abdominal pain in right upper quadrant: Code(s): R10.11 - Right upper quadrant pain Plan Last colonoscopy at [facility] on 10/30/2020, patient was found to have H pylori. Patient had 4 polyps in her rectum and 1 in proximal rectum that were hyperplastic. Patient has family history of colorectal cancer. Patient's mom was diagnosed with CRC and she was told to have her colonoscopy done every 2-3 years. Due to family history as well as due to the amount of polyps found. Patient reports right upper quadrant pain will send her for abdominal ultrasound. Status post cholecystectomy on July. Patient was encouraged to avoid dietary triggers. Low FODMAP diet recommended. Patient has constipation, however occasionally she will have loose stools postprandially. Will start patient on Linzess. Patient will call our office if she will continue to have constipation. Patient will return in 6 months, sooner on as needed basis. You will discuss going for colonoscopy and possible upper endoscopy. Continue pantoprazole every morning. She is agreeable to this plan and verbalizes understanding of instructions. She was given the opportunity to ask questions and all questions answered. Thank you for allowing me to participate in her care Orders: Orders US abdomen complete Today R10.9 - Unspecified abdominal pain Medications: New linaclotide (Linzess) 145 mcg PO DAILY 30 caps 2RF Coding Level of Care Code Est Pt Level 4 (25840) Diagnoses Status post laparoscopic cholecystectomy Z90.49 Biliary dyskinesia K82.8 Irritable bowel syndrome with both constipation and diarrhea K58.2 Irritable bowel syndrome type: with both diarrhea and constipation Postprandial abdominal bloating R14.0 Postprandial abdominal pain in right upper quadrant R10.11 Time Spent (min) 40 Comment 25 minutes spent with patient and additional 15 minutes spent reviewing her records
[2023-11-03 12:20] VITALS: BP 119/63; PULSE 84; BMI 37.9
== END 2023-11-03 12:40 | disposition home or self-care (01) ==
PROVIDERS: PCP Hospitalist; Visit Provider Nurse Practitioner Family
DX: Z90.49 Acquired absence of other specified parts of digestive tract (principal); K82.8 Other specified diseases of gallbladder; K58.2 Mixed irritable bowel syndrome; R14.0 Abdominal distension (gaseous); R10.11 Right upper quadrant pain
CPT/HCPCS: 99214

== ENCOUNTER → 2023-11-03 12:02 | Outpatient (BNVA) | payer OTHER, SELFPAY | PROVIDERS: PCP Hospitalist; Visit Provider Nurse Practitioner Family ==

== ENCOUNTER 2024-01-10 08:15 | Outpatient (REF) | payer OTHER, SELFPAY ==
--- NOTE | ~2024-01-10 | US_ITS ---
EXAMINATION: US ABDOMEN COMPLETE CLINICAL INFORMATION: Unspecified abdominal pain. COMPARISON: MR abdomen and pelvis 12/30/2022. Ultrasound abdomen complete 12/18/2022. TECHNIQUE: Real-time imaging of the abdominal viscera. Technically difficult study secondary to abdominal gas. FINDINGS: PANCREAS: Limited visualization of pancreatic tail and head. Imaged portion of pancreatic body is unremarkable. ABDOMINAL AORTA: Limited visualization. INFERIOR VENA CAVA: Visualized portions are normal. LIVER: Hepatomegaly, 18.3 cm. Increased hepatic parenchymal heterogeneity and echogenicity could be associated with hepatocellular disease/hepatic steatosis and substantially limits visualization. Correlation with liver function tests and clinical exam recommended to determine further management. GALLBLADDER: Surgically absent. COMMON BILE DUCT: Not seen. RIGHT KIDNEY: No hydronephrosis. No renal calculi. Limited visualization. The kidney measures 11.5 cm in maximum dimension. LEFT KIDNEY: No hydronephrosis. No renal calculi. Limited visualization. The kidney measures 10.8 cm in maximum dimension. SPLEEN: Normal. The spleen measures 10.8 cm in maximum dimension. FREE FLUID: None. US/US abdomen complete IMPRESSION: 1. Hepatomegaly, 18.3 cm. Increased hepatic parenchymal heterogeneity and echogenicity could be associated with hepatocellular disease/hepatic steatosis and substantially limits visualization. Correlation with liver function tests and clinical exam recommended to determine further management. 2. Gallbladder surgically absent. 3. Limited visualization due to bowel gas and body habitus.
== END 2024-01-10 08:16 | disposition home or self-care (01) ==
LOC: HO.US 08:15
PROVIDERS: PCP Hospitalist; Visit Provider Nurse Practitioner Family
DX: R10.9 Unspecified abdominal pain (principal)
CPT/HCPCS: 76700